=== PATIENT | female | born 1940 | race Two or more races ===

== ENCOUNTER 2017-03-16 19:48 | Emergency (ER) | payer MEDICARE, BC ==
[~2017-03-16] VITALS: Ht 165.1 cm; Wt 78.0 kg
[2017-03-17] MEDS ORDERED: ONDANSETRON HCL 4 MG/2 ML VIAL IV ONE (03:00)
[2017-03-17] MEDS ORDERED: MORPHINE SULF INJ 2 MG/ML SYRINGE 1ML IV ONE (03:00)
[2017-03-17 04:55] VITALS: BP 154/70
== END 2017-03-17 04:31 | disposition home or self-care (01) ==
LOC: ER 19:48
DX: S33.5XXA Sprain of ligaments of lumbar spine, initial encounter (principal); M54.16 Radiculopathy, lumbar region; K80.20 Calculus of gallbladder without cholecystitis without obstruction; M79.1 Myalgia; I10 Essential (primary) hypertension; X58.XXXA Exposure to other specified factors, initial encounter; Y93.89 Activity, other specified; Y92.89 Other specified places as the place of occurrence of the external cause; Y99.8 Other external cause status
CPT/HCPCS: 72131; 96374; 96375; 99284; J2270; J2405